=== PATIENT | male | born 1965 | race Caucasian/White ===

== ENCOUNTER 2016-12-17 10:37 | Observation (INO) | payer SELFPAY ==
[2016-12-17] VITALS (7 sets, daily range): BP systolic 135–155; BP diastolic 78–92; PULSE 64–78; RESP 18–20; O2SAT 97–100
[~2016-12-17] VITALS: Ht 172.7 cm; Wt 61.4 kg
[~2016-12-17 10:37] MED LIST: ASPI-956 PO; LIP20 PO; METO25T PO; OMEP20TA86 PO; [UNRECOGNIZED DRUG - OTHER] PO
--- NOTE | 2016-12-17 10:50 | ED.REPORT ---
HPI-Neurologic Deficit Date of Service Dec 17, 2016 ED Provider: Wallace Mcgovern MD The pt is a 51 y/o male with a hx of CA (CABG in 2010) who presents to the ED via EMS complaining of tingling sensation on the left side of his face that gradually came on a few hours ago. He felt normal when he woke up this morning but began noticing left sided facial droop, tingling, and general malaise after a few hours. Associated sx include upper lip numbness and tingling sensation sensation in his left fingers and toes. He denies vision change, change in speech, dysphagia, nausea, vomiting, and headache. The pt also reports sharp pain in his right shoulder blade that lasted 15-20 minutes, onset a few hours ago. He denies shortness of breath, left sided chest pain, and neck pain. His current sx are not the same as the last time he was diagnosed with CA as he is not short of breath today. In the ED, the pt reports feeling better. Nursing Notes Stated Complaint: NUMBNESS Chief Complaint: Neuro Symptoms/ Deficits Nursing Notes Reviewed: Yes Allergies: Uncoded Allergies: EKG ADHESIVES (Adverse Reaction, Intermediate, reddened area, 02/26/12) Scheduled Aspirin (Aspirin) 81 Mg Tablet 81 MG PO DAILY General Time Seen by Provider: 11:03 Chief Complaint Other (tingling sensation in the left sided of the face) Hx Obtained From: Patient Arrived By: Ambulance Sudden in Onset?: Yes Onset Occurred: 1 - 4 hours ago Symptom Duration: Since onset Location: : Back upper Quality: Painful Radiation: : Does not radiate Severity: Current: No pain currently Severity: Maximum: Moderate Recent Healthcare: No recent doctor visit Similar Sx Previous: No Risk Factors NIH Stroke Scale Level of Consciousness: Alert and responsive (0) Ask Month & Age: Both questions right (0) Open/Close Eyes/Hand Shared Services Manager: Performs both tasks (0) Horizontal EO Movements: None (0) Visual Carver: No visual loss (0) Facial Palsy: Normal symmetry (0) Right Arm Motor Drift (10s): No drift 10 sec (0) Left Arm Motor Drift (10s): No drift 10 sec (0) Right Leg Motor Drift (5s): No drift 5 sec (0) Left Leg Motor Drift (5s): No drift 5 sec (0) Limb Ataxia FNF/Heel-Blevins: No ataxia (0) Sensation (Arms/Legs/Face): No sensory loss (0) Language Aphasia: No aphasia, normal (0) Dysarthria: No dysarthria, normal (0) Extinction/Inattention: No exctinct/inattent (0) NIHSS Score: 0 Time NIHSS Performed: 11:05 Date NIHSS Performed: Dec 17, 2016 Past Medical History Past Medical History Notes: Lens 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 Fountain Past Medical History Reports: Coronary artery disease Past Surgical History Right BKA Reports: CABG Smoking History Current Every Day Smoker Ambulatory Status Independent Review of Systems Reports: tingling sensation in the left side of the face, left fingers and toes. Reports: left sided facial droop Constitutional: Reports: Malaise Respiratory: Denies: Shortness of breath Cardiovascular: Denies: Chest pain GI: Denies: Dysphagia, Nausea, Vomiting Musculoskeletal: Reports: Back pain (right shoulder blade), Denies: Neck pain Neurologic: Reports: Numbness (upper lip), Denies: Headache, Slurred speech, Unable to speak, Vision change Complete sys rev & neg: except as marked. Physical Exam Initial Vital Signs Vital Signs (First) Date Time Temp Pulse Resp B/P Pulse Ox O2 Delivery O2 Flow Rate FiO2 12/17/16 10:47 36.1 76 20 155/90 100 Room Air Initial VS: Reviewed Neck: Supple, Non-tender, Full range of motion Abdomen / GI: Soft, Non-tender, No guarding, No rebound, No distention Extremities: Vascular intact, Neuro intact, No swelling, No tenderness Skin: Warm, Dry, No cyanosis Psychiatric: Mood/affect normal, Behavior normal, Normal thought content General/Constitutional: Awake, Alert, No acute distress, Well appearing, Cooperative Head / Eyes: Atraumatic, Normocephalic, PERRL, EOMI Respiratory / Chest: Atraumatic, Breath sounds NL, Breath sounds = bilat, No respiratory distress, No rales, No rhonchi, No wheezing Cardiovascular: Heart rate NL, Regular rhythm, Heart sounds NL, No gallop, No murmurs, No rubs Neurologic: Oriented X3, Speech NL, No motor deficits, No sensory deficits Upper Extremity / MS: Atraumatic, Inspection NL, Full range of motion, No swelling, Non-tender, No erythema, No deformity, Neurologic intact, Vascular intact Lower Extremity / Pelvis / MS: Atraumatic, Full range of motion, No swelling, Non-tender, No deformity, Neurologic intact, Vascular intact Interpretation & Diagnostics Lab Results Interpretation Result Diagram: 12/17/16 1050 12/18/16 0515 Test 12/17/16 10:50 12/17/16 11:45 White Blood Count 9.8th/mm3 (3.8-10.1) Red Blood Count 5.58mil/mm3 (4.40-5.80) Hemoglobin 17.7g/dL (13.8-17.2) Hematocrit 50.9% (41.0-50.0) Mean Corpuscular Volume 91.2fL (81-100) Mean Corpuscular Hemoglobin 31.7pg (27.0-35.0) Mean Corpuscular Hemoglobin Concent 34.8% (32.0-37.0) Red Cell Distribution Width 13.0% (12.3-15.4) Platelet Count 278bil/L (150-400) Neutrophils (%) (Auto) 64.4% (40-74) Lymphocytes (%) (Auto) 24.1% (14-46) Monocytes (%) (Auto) 9.0% (4-12) Eosinophils (%) (Auto) 1.9% (0-5) Basophils (%) (Auto) 0.4% (0-3) Prothrombin Time 10.4sec (8.1-12.5) Prothromb Time International Ratio 0.97ratio D-Dimer < 0.50mg/L FEU (<0.50) Urine Color Yellow (YELLOW) Urine Appearance Clear (CLEAR,HAZY) Urine pH 5.0 (5.0-8.0) Urine Specific [place] 1.005 (1.003-1.035) Urine Protein Negativemg/dL (NEG,TRACE) Urine Glucose (UA) Negativemg/dL (NEGATIVE) Urine Ketones Negativemg/dL (NEGATIVE) Urine Occult Blood Negative (NEGATIVE) Urine Nitrite Negative (NEGATIVE) Urine Bilirubin Negative (NEGATIVE) Urine Urobilinogen Normalmg/dL (NORMAL) Urine Leukocyte Esterase Negative (NEGATIVE) Urine RBC 0-2/hpf (0-2) Urine WBC 0-5/hpf (0-5) Urine Epithelial Cells None/hpf (NONE-MOD) Urine Crystals None seen (NONE SEEN) Urine Bacteria None/hpf (NONE-FEW) Urine Hyaline Casts None/lpf (NONE) Urine Granular Casts None seen (NONE SEEN) Urine Waxy Casts None seen (NONE SEEN) Urine Red Blood Cell Casts None seen (NONE SEEN) Urine White Blood Cell Casts None seen (NONE SEEN) Urine Mucus None seen (None Seen) Urine Trichomonas None seen (NONE SEEN) Urine Yeast None (NONE SEEN) Urinalysis Comment None Urine Culture Reflexed Not indicated X-Ray Chest Interpretation Chest Xray Interpretation: IMPRESSION: No acute pulmonary process. Dictated by: Pia Aguilar M.D. on 12/17/2016 at 12:28 Approved by: Pia Aguilar M.D. on 12/17/2016 at 12:28 View: Portable, 1 view Interpretation / Wet Read by: Interpret - Radiologist CT Head Interpretation IMPRESSION: 1. No acute intracranial process. Dictated by: Pia Aguilar M.D. on 12/17/2016 at 11:27 Approved by: Pia Aguilar M.D. on 12/17/2016 at 11:28 Study: Head CT no contrast Interpretation / Wet Read by: Interpret - Radiologist Re-Eval/Medical Decision Med Decision/Clinical Course 51-year-old male with history of CAD with CABG presenting with a left-sided numbness and tingling that started this morning. He reported left facial droop that resolved. Reported mild left facial numbness as well as left upper extremity and left lower extremity numbness. Symptoms improved by arrival. NIHSS was 0. He reported subjective left-sided numbness but his sensation was symmetrical and intact bilaterally. Workup in ED unremarkable. CT scan was obtained with no acute pathology. He also complained of some left upper back pain for 20 minutes. He reports symptoms similar to his previous heart attack, no associated shortness of breath. No EKG changes. Troponins negative 1. Patient will be admitted for TIA workup. We will also try and EKG and troponins given reported symptoms similar to previous CA. Admitted to Hospital. Full code. Source of Hx: Old records Re-Evaluation/Progress #1: Time of Eval: 00:08 Re-Evaluation/Progress Note: The pt informed the nurse he the tingling sensation in the face and fingers has returned. Re-Evaluation/Progress #2: Time of Eval: 01:07 Re-Evaluation/Progress Note: Rechecked pt. Discussed lab results, imaging results,diagnosis and plan to admit. Pt understands and agrees with the plan for admission. All questions addressed. Consultation : Referral / Consult Name: Niecy Ellington DO Consulted With: Hospitalist Call Returned at: 01:04 Carpet Weaver: Will see patient, Agrees with eval, Agrees with plan, Accepts admit Counseled Regarding: Diagnosis, Lab results, Need for admission Discharge & Departure Impression: Primary Impression: TIA (transient ischemic attack) Transient cerebral ischemia type: unspecified Qualified Code: G45.9 - Transient cerebral ischemic attack, unspecified Additional Impression: Chest pain Disposition: ADMITTED TO HOSPITAL Referrals: NOPCP (PCP) Scribe Attestation Portions of this note were transcribed by Ricardo Esqueda. I,Dr. Mcgovern, personally performed the history,physical exam and medical decision-making;I reviewed and confirmed the accuracy of the information in the transcribed note. Signed by Qasim Macias. 12/16/16 Wallace Mcgovern MD Dec 17, 2016 10:50 Ricardo Esqueda Dec 17, 2016 11:12
[2016-12-17 11:27] LABS: BASOPHILS % (AUTO) 0.4 % (0-3); D-Dimer < 0.50 mg/L FEU (<0.50); EOSINOPHILS % (AUTO) 1.9 % (0-5); INR 0.97 ratio; Mean Corpuscular Hemoglobin 31.7 pg (27.0-35.0); Mean Corpuscular Volume 91.2 fL (81-100); NEUTROPHILS % (AUTO) 64.4 % (40-74); Platelet Count 278 bil/L (150-400)
--- NOTE | 2016-12-17 11:30 | DRSVH ---
PROCEDURE: CT BRAIN WITHOUT CONTRAST ([id number]) INDICATIONS: Left sided weakness TECHNIQUE: Noncontrast 4.5 mm thick angled axial sections acquired from the foramen magnum to the vertex, with c oronal reformats. COMPARISON: [facility] [place] , CT, BRAIN W/O CONTRAST, 09/04/2008, 15:16. FINDINGS: Image quality: Excellent. CSF spaces: Basal cisterns are patent. No extra-axial fluid collections. Ventricles are normal in size and shape. Brain: No midline shift. No intracranial masses or hemorrhage. Degroot-white matter interface is norm al. Skull and face: Calvarium and visualized facial bones are intact, without suspicious lesions. Sinuses: Visualized sinuses and mastoids are clear. IMPRESSION: 1. No acute intracranial process. Dictated by: Pia Aguilar M.D. on 12/17/2016 at 11:27 Approved by: Pia Aguilar M.D. on 12/17/2016 at 11:28
[2016-12-17 11:37] LABS: TROPONIN T 0.01 ug/L (0.0-0.011)
--- NOTE | 2016-12-17 12:30 | DRSVH ---
PROCEDURE: X-RAY CHEST ONE VIEW, PORTABLE ([id number]) INDICATIONS: back pain TECHNIQUE: One view of the chest was acquired. COMPARISON: [facility], , CHEST 1VW (PORTABLE), 09/10/2014, 11:31. FINDINGS: Surgical changes and devices: None. Lungs and pleura: No pleural effusions or pneumothorax. Lungs are clear. Mediastinum: Mediastinal contours appear normal. Heart size is normal. Bones and chest wall: No suspicious bony lesions. Overlying soft tissues appear unremarkable. IMPRESSION: No acute pulmonary process. Dictated by: Pia Aguilar M.D. on 12/17/2016 at 12:28 Approved by: Pia Aguilar M.D. on 12/17/2016 at 12:28
[2016-12-17] MEDS ORDERED: ASPI-973 PO (13:13)
[2016-12-17] MEDS ORDERED: Alum-Mag Hydrox-Simeth 30 mL Suspension PO PRN (13:20)
[2016-12-17] MEDS ORDERED: Ondansetron 2 mg/mL 2 mL Inj IVPUSH PRN (13:20)
[2016-12-17] MEDS ORDERED: Polyethylene Glycol (PEG) 17 Gm Powder PO PRN (13:25)
[2016-12-17 15:04] LABS: APPEARANCE,URINE CLEAR (CLEAR,HAZY); COLOR,URINE YELLOW (YELLOW); OCCULT BLOOD,URINE NEGATIVE (NEGATIVE); UROBILINOGEN,URINE NORMAL (NORMAL)
[2016-12-17] MEDS ORDERED: Labetalol 5 mg/mL 20 mL Inj IVPUSH PRN (15:45)
--- NOTE | 2016-12-17 16:30 | PCM.HPMED ---
Subjective Date of Service Dec 17, 2016 Primary Provider: Admitting Physician: Niecy Ellington DO Primary Care Physician: Jake Attending Physician: Niecy Ellington DO Admit Status: From the Emergency Department, 23-Hour Observation, Admit to [facility], Remote Telemetry Chief Complaint: Numbness and facial droop. . History of Present Illness: Jim Penn is a 51-year-old male with a past medical history significant for coronary artery disease status post CABG 3 vessels, hyperlipidemia, and tobacco use disorder who presented to [facility] emergency Department due to left-sided facial numbness and droop. The patient reports that he woke up this morning and was going about his daily routines when he began to have numbness and tingling in the left side of his face. He then reports that his eyelid felt quite heavy and there was some facial droop which prompted him to come to the emergency department. He has a history of right- sided Benedict's palsy but reports that there was no numbness or tingling associated it. He denies upper or lower extremity focal weakness or trouble with speech. He has never had this before. He reports that by the time he reached the emergency department most of his symptoms had resolved. He had associated numbness and tingling sensation in his left fingers and toes. He denies headache, vision changes, change in speech, dysphagia, sore throat, cough , chest pain, shortness of breath, abdominal pain nausea, vomiting, fever, chills, dysuria, diarrhea or constipation. Of note, he also reported a sharp pain in his left shoulder blade that lasted 15 -20 minutes, onset a few hours ago. He denies shortness of breath, left sided chest pain, and neck pain. His current symptoms are not the same as the last time he was diagnosed with AL as he is not short of breath today. Vital signs in the ER: Temperature 36.1. Pulse 76. Respiratory rate 20. Blood pressure 135/90. Pulse ox 100% on room air. It appears Dr. Henson was contacted by the ED and he recommends a stress test, patient also says he has not followed up with Dr. Henson in 3 yrs. He has stopped his medications that included a statin as he could not afford the meds. No PCP. Quality Tester Dr. Henson. . Review of Systems: A comprehensive review of systems was conducted with the patient and found to be negative except as above in the History of Present Illness. . Allergies Uncoded Allergies: EKG ADHESIVES (Adverse Reaction, Intermediate, reddened area, 02/26/12) Home Medications Aspirin 81 mg daily. . PMH 1. Coronary artery disease status post CABG x 3 vessels. 2. Tobacco use disorder. 3. 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 4. History of right sided Benedict's palsy. 5. Hemochromatosis. 6. Degenerative disc disease. 7. Hyperlipidemia. . Surgical History 1. Right BKA. 2. CABG. 3. Appendectomy. 4. Tonsillectomy. 5. Right hip replacement. . Family History Father who has CAD status post AL at 52 years old. Mother who of Alzheimer 's disease. Two brothers who are healthy. . Social History Hx Alcohol Use: Yes Alcoholic Drinks Per Day: 5-6 beers a week on average, 2-3x/week Hx Substance Use: No Hx Tobacco Use: Yes Smoking Status: Current Every Day Smoker (3-4 cigarettes/day, 2 PPD x 20+ years) Additional Information The patient is . He has a significant other. He has one daughter who is healthy. 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 . Exam Vital Signs Vital Sign - Last Date Time Temp Pulse Resp B/P Pulse Ox O2 Delivery O2 Flow Rate FiO2 12/17/16 13:52 66 12/17/16 13:43 36.7 18 137/86 97 Room Air Exam General: Middle-aged male lying in bed and in no acute distress, well-developed , well-nourished, appropriately interactive HEENT: Normocephalic, atraumatic. External ears without defect. Pupils equal, round, and reactive to light. Anicteric sclerae, moist conjunctivae, and no lid lag. Oropharynx free of erythema and cobble stoning with moist mucosa. Neck: Supple with full range of motion. No jugular venous distension. No bruits. No lymphadenopathy or thyromegaly. Cardiovascular: Regular rate and rhythm without murmurs, rubs, or gallops appreciated Pulmonary: Scattered fine crackles, no wheezes or rhonchi. Normal respiratory effort with no use of accessory muscles. Abdomen: Soft, nontender, nondistended, bowel sounds present. No hepatosplenomegaly or masses appreciated. Extremities: No clubbing, cyanosis, or edema of the left lower extremity. Right lower extremity prosthesis in place. Skin: Normal temperature, turgor, and texture; no rash, ulcers, or subcutaneous nodules appreciated. Neurological: Cranial nerves grossly intact with the exception L facial droop. . Normal muscle strength in mall plant caretaker, L LE. Reflexes (achilles were not done, R Lower leg missing), coordination, and sensory function within normal limits. Neg romberg's, neg alternative hands, negative [id number]. known gait impairment due to R TKA Psychiatric: Normal mood and affect. Alert and oriented to person, place, and time. .Vascular: Palpable pedal pulses in Left foot Lab and Diagnostics Labs Item Value Date Time Prothrombin Time 10.4 sec 12/17/16 1050 Prothromb Time International Ratio 0.97 ratio 12/17/16 1050 D-Dimer < 0.50 mg/L FEU 12/17/16 1050 Item Value Date Time Calcium Level 9.4 mg/dL 12/17/16 1050 Total Bilirubin 0.3 mg/dL 12/17/16 1050 Aspartate Amino Transf (AST/SGOT) 16 U/L 12/17/16 1050 Alanine Aminotransferase (ALT/SGPT) 14 U/L 12/17/16 1050 Alkaline Phosphatase 65 U/L 12/17/16 1050 Troponin T 0.010 ug/L 12/17/16 1050 Pro-B-Type Natriuretic Peptide 104.7 pg/mL 12/17/16 1050 Total Protein 7.8 g/dL 12/17/16 1050 Albumin 4.6 g/dL 12/17/16 1050 Result Diagram: 12/17/16 1050 12/17/16 1050 X-Rays, CTs and MRIs CT BRAIN WITHOUT CONTRAST IMPRESSION: 1. No acute intracranial process. Dictated by: Pia Aguilar M.D. on 12/17/2016 at 11:27 X-RAY CHEST ONE VIEW, PORTABLE IMPRESSION: No acute pulmonary process. Dictated by: Pia Aguilar M.D. on 12/17/2016 at 12:28 Assessment & Plan Jim Penn is a 51-year-old male with a past medical history significant for coronary artery disease status post CABG 3 vessels, hyperlipidemia, and tobacco use disorder who presented to [facility] emergency Department due to left-sided facial numbness and droop. Assessment # Possible TIA, under evaluation. - The patient presented with left-sided facial numbness and droop. - Differential diagnosis includes: TIA versus CVA versus left-sided Benedict's palsy. - Clinical exam showed a left sided droop - Continue aspirin 81 mg daily. - Ordered fasting lipid panel tomorrow morning. - Ordered physical therapy, occupational therapy, and speech therapy. Of note, patient failed nurse swallow screen for left tongue deviation, however, signed waiver for heart healthy diet. - CT brain without contrast did not demonstrate any acute intracranial abnormalities, as above. - Ordered MR Stroke protocol given patient's risk factors - Ordered echocardiogram, pending. - Continue to monitor closely on telemetry. - Allow for permissive hypertension. Ordered PRN Labatolol for SBP > 220 or DBP >110. - Continue neuro checks for the next 24 hours. - Ordered nuclear medicine exercise stress test at direction of patient's engineering recruiter, Dr. Henson, for left-sided shoulder pain that occurred during episode of facial numbness and droop. - NPO after midnight. Chronic problems: Coronary artery disease status post CABG pt currently not on meds except asa - Continue aspirin 81 mg daily. - Restarted the patients atorvastatin 20 mg daily at bedtime as he has not been taking it. - At the request of his engineering recruiter, Dr. Henson, we will perform an exercise stress test tomorrow. --Echocardiogram is ordered --Heparin SQ 5000 U Q8H Tobacco use disorder ongoing - Counseled patient extensively on smoking cessation. - Ordered nicotine patch as needed for nicotine withdrawal. Hemochromatosis ongoing - Hemoglobin 17.7 and hematocrit 50.9. - May want to consider phlebotomy to lower blood counts and prevent hemostasis and coagulopathy. --Possible increased risk of thrombosis. --Hold off on enoxaparin until we get MR Brain result back to avoid hemorrhagic conversion, Heparin SQ was given after MRI was done. Hyperlipidemia ongoing - Continue atorvastatin 20 mg daily. High Risk Meds: IV Morphine PRN antiemetics: Zofran and Maalox. PRN bowel regimen: Senna and MiraLAX. PRN analgesics: Tylenol. Patient is admitted under observation status with expected length of stay less than 2 midnights due to severity of presenting symptoms, risk of adverse event, and complexity of treatment plan. . VTE Prophylaxis: Sub-Q Heparin (Unfractionated) Resuscitation Status: Limited Interventions (DNI) Time spent 45 min Attending Statement Patient is seen with Dr. Marina on 12/17/16, separately examined by me. agree with the above assessment and plan. copies to: Dakota Henson MD, [place] M DO Dec 17, 2016 14:24 Niecy Ellington DO Dec 17, 2016 21:28
[2016-12-17] MEDS: Heparin 5,000 Unit/mL Inj SUBQ SCH (17:29)
--- NOTE | 2016-12-17 18:53 | DRSVH ---
PROCEDURE: MRI STROKE PROTOCOL ([id number]) Pre- and post-contrast brain MRI, non-contrast brain MR angiogram, pre- and postcontrast neck MR almita ogram INDICATIONS: 51 year-old male with history of left-sided facial droop and tingling. TECHNIQUE: Brain: Noncontrast axial T1 spin echo, axial T2 fast spin echo, sagittal and axial FLAIR, coronal T2 fast spin echo, axial gradient echo, axial diffusion and ADC through the brain. After the administr ation of contrast, axial 3D VIBE of the cranial vasculature and brain. Brain MRA: Non-contrast 3-D time of flight MR angiogram, with multiple ciyipmq-pnnwuwvsh-qzzdxwgwli (MIP) reformats performed. Neck MRA: Axial and sagittal TruFISP through the neck. Coronal dynamic MR angiogram during administ ration of contrast in the arterial and venous phases, with 3-dimenstional fxicnpr-ilbuolfxt-imbogdmzt n (MIP) reformats constructed from subtraction images. COMPARISON: [facility], CT, CT BRAIN WO CON, 12/17/2016, 11:26. FINDINGS: Image quality: Excellent. BRAIN: CSF spaces: The ventricles are normal in size. Basal cisterns are patent. No extra-axial fluid say ections. Brain: Diffusion-weighted images demonstrate no acute infarcts. No intracranial hemorrhage, mass, o r mass effect. Degroot-white matter interface is preserved. Brainstem appears normal. Normal intravas cular flow voids are present. No abnormal intracranial enhancement. Skull and face: Calvarial marrow signal is normal. Orbits appear normal. Sinuses: Sinuses and mastoids are clear. BRAIN MR ANGIOGRAM: Anterior circulation: Intracranial internal carotid arteries are patent bilaterally. The flow withi n the paired anterior cerebral arteries is patent bilaterally. The flow within the middle cerebral a rteries is patent bilaterally. The anterior communicating artery is visualized. No high-grade steno ses, occlusions, or aneurysms. Posterior circulation: The visualized portions of the vertebral arteries appear patent and join to f orm a patent basilar artery. The flow within the posterior cerebral arteries is patent bilaterally. No high-grade stenoses, occlusions, or aneurysms. NECK MR ANGIOGRAM: Carotids: Great vessels demonstrate a bovine aortic arch with common origin of the right brachioceph alic and left common carotid arteries as they arise from the aortic arch. The origins of the common carotid arteries appear patent. The calibers and courses of both common carotid arteries are normal. The bifurcation regions appear widely patent. The internal carotid arteries demonstrate normal cou rse and caliber. Posterior circulation: The origins of the vertebral arteries appear patent. More superior portions of both vertebral arteries demonstrate normal course and caliber, and join to form a normal appearing basilar artery. Miscellaneous: Subclavian arteries appear patent. Pre-contrast images through the neck demonstrate multilevel degenerative disc disease within the mid cervical spine with associated spinal canal narro wing at C3-C4, C4-C5, and C5-C6 which are incompletely evaluated. IMPRESSION: BRAIN MRI: 1. No evidence of infarct or other acute intracranial abnormality. BRAIN MR ANGIOGRAM: 1. No high-grade stenosis or occlusion of the central intracranial arteries. NECK MR ANGIOGRAM: 1. High grade stenosis or occlusion of the head and neck arteries. The estimate of stenosis included in the report of the imaging study was calculated using the NASCET method Dictated by: Bert Le M.D. on 12/17/2016 at 18:51 Approved by: Bert Le M.D. on 12/17/2016 at 18:51
[2016-12-18] VITALS (7 sets, daily range): BP systolic 119–157; BP diastolic 69–84; PULSE 56–89; RESP 14–18; O2SAT 95–98
[2016-12-18] MEDS: Heparin 5,000 Unit/mL Inj SUBQ SCH ×3 (00:30→16:30)
[2016-12-18 06:00] LABS: Magnesium 2.1 mg/dL (1.6-2.6)
--- NOTE | 2016-12-18 15:27 | DRSVH ---
[facility] [address] [place] [address] Echocardiogram Report Name: PAIGE BETANCUR JStudy Date: 12/18/2016 Height: 68 in Hospital Exam Location: [facility] Weight: 135 lb Gender: Male BSA: 1.7 m2 : 1965 Age: 51 yrs BP: 133/82 mmHg Reason For Study: TIA Ordering Physician: Performed By: Jah Schroeder Interpretation Summary 1. No evidence of cardio-embolic stroke based upon this imaging study. 2. Normal LV size and function. No focal wall motion abnormalities. 3. Normal biatrial size with intact inter-atrial septum. 4. No evidence of valvular heart diseases. 5. Great vessels are normal size. Procedure: A two-dimensional transthoracic echocardiogram with color flow and Doppler was performed. The study quality was technically good. There is no prior echocardiogram noted for this patient. A saline contrast injection was performed to assess for cardiac shunting. The patient was in normal sinus rhythm during the exam. Left Ventricle: The left ventricle is normal in size. There is normal left ventricular wall thickness. The ejection fraction is estimated to be 50-55%. There are no focal wall motion abnormalities. Right Ventricle: The right ventricle is normal in size and function. Atria: Both atria are normal in size. Injection of contrast documented no interatrial shunt. Mitral Valve: The mitral valve is normal in structure and function. There is trace mitral regurgitation. Aortic Valve: The aortic valve is trileaflet. The aortic valve opens well. There is trace aortic regurgitation. Tricuspid Valve: The tricuspid valve is normal in structure and function. There is trace tricuspid regurgitation. The right ventricular systolic pressure is estimated at 21 mmHg assuming a right atrial pressure of 3 mm Hg. Pulmonic Valve: The pulmonic valve is normal in structure and function. There is trace pulmonic regurgitation. Great Vessels: The aortic root is normal size. The dimensions of the ascending aorta are normal. The pulmonary artery is normal size. The IVC is of normal diameter and collapses greater than 50% with a sniff. This suggests a low right atrial pressure of 3 mm Hg. Pericardium/ Pleura There is no pericardial effusion. There is no pleural effusion. MMode/2D Measurements & Calculations LVIDd: 5.1 cm LA dimension: 3.1 cm LVIDs: 3.6 cm FS: 30.0 % LA A2 area: 17.4 cm EPSS: 0.57 cm LA A4 area: 15.7 cm IVSd: 0.96 cm LA length (vol): 4.9 cm LVPWd: 0.83 cm LA vol: 47.2 ml LA vol index: 27.3 ml/m IVC diam: 1.5 cm RA long axis: 4.2 cm Ao root diam: 3.3 cm RA area: 14.1 cm Aortic Jxn: 2.6 cm RA vol: 40.3 ml asc Aorta Diam: 3.1 cm RA : 23.3 ml/m2 EDV(MOD-sp2): 84.9 ml LV hernández. diameter/BSA (cm/m^2): 3.0 ESV(MOD-sp2): 37.0 ml EF(MOD-sp2): 56.4 % LV sys. diameter/BSA (cm/m^2): 2.1 Doppler Measurements & Calculations Ao V2 max: 106.9 cm/sec MV E max geovani: 55.3 cm/sec Ao max P.6 mmHg MV A max geovani: 63.0 cm/sec Ao mean P.0 mmHg MV E/A: 0.88 TR max geovani: 213.4 cm/sec Med Peak E' Geovani: 5.4 cm/sec TR max P.2 mmHg E/E' med: 10.3 PA V2 max: 71.2 cm/sec Lat Peak E' Geovani: 10.2 cm/sec PA mean P.2 mmHg E/E' lat: 5.4 PA Accel Time: 0.10 sec E/e' average: 7.9 Pulm A Revs Dur: 0.12 sec MV dec time: 0.22 sec Ao V2 mean: 84.8 cm/sec Ao V2 VTI: 23.8 cm PA V2 mean: 51.9 cm/sec PA pr(Accel): 32.4 mmHg Electronically signed by: Dr. Dakota Henson on Reading Physician:12/18/2016 03:26 PM
--- NOTE | 2016-12-18 17:20 | DRSVH ---
PROCEDURE: 1 DAY TREADMILL STRESS TEST Rest and exercise myocardial perfusion SPECT with gated imaging and ejection fraction RADIOPHARMACEUTICAL: 7.4 mCi Tc-99m tetrafosmin IV at rest and 26.7 mCi Tc-99m tetrafosmin IV at peak exercise. Gxt-yue-upthopff was performed. INDICATIONS: 51 year-old male with history of hypertension and coronary artery disease status post CA BG presenting for evaluation of chest pain and TIA. TECHNIQUE: Radiopharmaceutical was injected at peak stress test, and also at rest. SPECT images wer e obtained. SPECT myocardial perfusion images were displayed in short axis, horizontal long axis, an d vertical long axis views. Gated images were reviewed using ArborMet[employer] software. COMPARISON: [facility] [place], [place], MYOCARD PERF SPECT MULT, 02/24/2011, 9:06. CARDIAC STRESS: A standard [place] treadmill exercise tolerance test was performed by the patient under the supervision of an attending staff. The patient exercised for 10 minutes and 36 seconds; functional aerobic impa irment (KARINA) is +30 %. Hemodynamic data: There is normal blood pressure and heart rate response to exercise stress. Patien t achieved 86% of maximum predicted heart rate at peak exercise. Symptoms: Patient denied chest pain during exercise. EKG: No diagnostic EKG changes of ischemia. Rare occasional PVCs noted. FINDINGS: Raw data: There is good myocardial labeling by radiotracer. No significant motion artifacts. Left ventricle function: Gated images demonstrate normal left ventricle wall thickening. There is m ild hypokinesis of the septum which may be related to prior CABG. The left ventricle resting end-hira stolic volume is 90 mL. Left ventricle stress ejection fraction is 61%; normal values are above 45%. Myocardial perfusion: There is normal relative distribution of activity in the left and right ventri cular myocardium. There is a fixed perfusion deficit at the base of the inferior wall suggestive of soft tissue attenuation artifact and less likely a prior infarct. No definite reversible perfusion d efects. IMPRESSION: 1. Probable normal myocardial perfusion images without definite reversible defects to suggest ischem ia. A small reversible perfusion deficit at the base of the inferior wall likely represents soft tis konstantin attenuation artifact and less likely a prior infarct. 2. Normal left ventricular ejection fraction. 3. Mild hypokinesis of the septum may be related to prior CABG. 4. No diagnostic EKG changes of ischemia following exercise stress. PQRS ATTESTATIONS: Measure 322 - Is this imaging test primarily performed on a low-risk surgery patient for preoperative evaluation within 30 days preceding their low-risk non-cardiac surgery? Low-risk surgery is defined as cardiac or myocardial infarction less than 1%, including (but not limited to) endoscopic pr ocedures, superficial procedures, cataract surgery, and excisional breast surgery: Answer: No Measure 323 - Is this imaging test performed primarily for the monitoring of an asymptomatic patient who had percutaneous coronary intervention on the visit date or within 2 years of the visit date? An swer: No Measure 324 - Is this imaging test performed primarily for the initial detection and risk assessment on an asymptomatic, low coronary heart disease patient? Low CHD risk definition = clinicians should consider the maximum number of available patient factors used to estimate risk based on [place] (A TP III criteria), typically age, gender, diabetes, smoking status, and use of blood pressure medicati on, and integrate age appropriate estimates for missing elements, such as LDL or standard blood press ure. Answer: No Dictated by: Bert Le M.D. on 12/18/2016 at 17:12 Approved by: Bert Le M.D. on 12/18/2016 at 17:18
--- NOTE | 2016-12-18 18:04 | PCM.DIMED ---
Discharge Instructions Date of Service Dec 18, 2016 Dates of Hospitalization Dec 17, 2016 at 12:59 Discharge Diagnosis Discharge Diagnosis TIA, Upper back pain, CAD, hyperlipidemia, hemachromatosis Medication Instructions Additional med instructions Please note your statin, lisinopril and metoprolol have been restarted. Daily babu aspirin is recommended Diet Discharge Diet: Heart Healthy Activity Discharge Activity: No restrictions Call your provider Call your provider for: Fever or Chills, Shortness of breath, Bleeding, Chest pain, Vomitting, Excessive diarrhea, Weakness (unilateral), Other Patient Instructions Follow-up plan Please see Dr. Henson in one week Please see [facility] to establish PCP in one week F/U with [facility] for hemachromatosis in 2 weeks Niecy Ellington DO Dec 18, 2016 18:04
[2016-12-18] MEDS ORDERED: METO25TA6 PO (18:06)
[2016-12-18] MEDS ORDERED: LISI-571 PO (18:06)
[2016-12-18] MEDS ORDERED: ATOR10TA66 PO (18:06)
--- NOTE | 2016-12-18 18:09 | PCM.DC.MED ---
Discharge Summary Date of Service Dec 18, 2016 Dates of Hospitalization Date of Hospital Admission Dec 17, 2016 at 12:59 Date of Discharge: Dec 18, 2016 Providers: Admitting Physician: Niecy Guzman DO Primary Care Physician: Jake Attending Physician: Niecy Guzman DO Diagnosis at Time of Discharge Diagnosis at Time of Discharge TIA, Upper back pain, CAD, hyperlipidemia, hemachromatosis Procedures XRay, CTs & MRIs CT BRAIN WITHOUT CONTRAST IMPRESSION: 1. No acute intracranial process. Dictated by: Pia Aguilar M.D. on 12/17/2016 at 11:27 X-RAY CHEST ONE VIEW, PORTABLE IMPRESSION: No acute pulmonary process. Dictated by: Pia Aguilar M.D. on 12/17/2016 at 12:28 --- IMPRESSION: BRAIN MRI: 1. No evidence of infarct or other acute intracranial abnormality. BRAIN MR ANGIOGRAM: 1. No high-grade stenosis or occlusion of the central intracranial arteries. NECK MR ANGIOGRAM: 1. High grade stenosis or occlusion of the head and neck arteries. The estimate of stenosis included in the report of the imaging study was calculated using the NASCET method Dictated by: Bert Le M.D. on 12/17/2016 at 18:51 Approved by: Bert Le M.D. on 12/17/2016 at 18:51 ADDENDUM: Correction of typographic error in the impression of the neck MR angiogram. This should state: No high-grade stenosis or occlusion of the head and neck arteries. Dictated by: Bert Le M.D. on 12/18/2016 at 12:49 Approved by: Bert Le M.D. on 12/18/2016 at 12:50 Report status: Addendum REPORT#: [id number] Cardiac Echo Impression Echocardiogram Report Interpretation Summary 1. No evidence of cardio-embolic stroke based upon this imaging study. 2. Normal LV size and function. No focal wall motion abnormalities. 3. Normal biatrial size with intact inter-atrial septum. 4. No evidence of valvular heart diseases. 5. Great vessels are normal size. \\ Electronically signed by: Dr. Dakota Henson on Reading Physician:12/18/2016 03:26 PM Brief History Jim Penn is a 51-year-old male with a past medical history significant for coronary artery disease status post CABG 3 vessels, hyperlipidemia, and tobacco use disorder who presented to [facility] emergency Department due to left-sided facial numbness and droop. The patient reports that he woke up this morning and was going about his daily routines when he began to have numbness and tingling in the left side of his face. He then reports that his eyelid felt quite heavy and there was some facial droop which prompted him to come to the emergency department. He has a history of right- sided Benedict's palsy but reports that there was no numbness or tingling associated it. He denies upper or lower extremity focal weakness or trouble with speech. He has never had this before. He reports that by the time he reached the emergency department most of his symptoms had resolved. He had associated numbness and tingling sensation in his left fingers and toes. He denies headache, vision changes, change in speech, dysphagia, sore throat, cough , chest pain, shortness of breath, abdominal pain nausea, vomiting, fever, chills, dysuria, diarrhea or constipation. Of note, he also reported a sharp pain in his left shoulder blade that lasted 15 -20 minutes, onset a few hours ago. He denies shortness of breath, left sided chest pain, and neck pain. His current symptoms are not the same as the last time he was diagnosed with CT as he is not short of breath today. Vital signs in the ER: Temperature 36.1. Pulse 76. Respiratory rate 20. Blood pressure 135/90. Pulse ox 100% on room air. It appears Dr. Henson was contacted by the ED and he recommends a stress test, patient also says he has not followed up with Dr. Henson in 3 yrs. He has stopped his medications that included a statin as he could not afford the meds. No PCP. Cio Dr. Henson. . Hospital Course Jim Penn is a 51-year-old male with a past medical history significant for coronary artery disease status post CABG 3 vessels, hyperlipidemia, and tobacco use disorder who presented to [facility] emergency Department due to left-sided facial numbness and droop. Assessment # Possible TIA, under evaluation. - The patient presented with left-sided facial numbness and droop. - Differential diagnosis includes: TIA versus CVA versus left-sided Benedict's palsy. - Clinical exam showed a left sided droop - Continue aspirin 81 mg daily. - Ordered physical therapy, occupational therapy, and speech therapy. Of note, patient failed nurse swallow screen for left tongue deviation, however, signed waiver for heart healthy diet. - CT brain without contrast did not demonstrate any acute intracranial abnormalities, as above. - Ordered MR Stroke protocol given patient's risk factors - Continue to monitor closely on telemetry. - Allow for permissive hypertension. Ordered PRN Labatolol for SBP > 220 or DBP >110. - Continue neuro checks for the next 24 hours. - Ordered nuclear medicine exercise stress test at direction of patient's dressmaker helper, Dr. Henson, for left-sided shoulder pain that occurred during episode of facial numbness and droop. Neg for new findings according to rad report -- Continue baby aspirin -- Pt declined swallow study, we recommend outpt Swallow study via PCP if patient wants to do it. Low risk for aspiration as he did fine on heart healthy diet here. Tongue deviation thought to be due to bells palsy that is remote. -- A!C is ordered and pending result at the time of d/c. Patient would like to be discharged home. -- Echo: "No evidence of cardio-embolic stroke based upon this imaging study." Chronic problems: Coronary artery disease status post CABG pt currently not on meds except asa - Continue aspirin 81 mg daily. - Restarted the patients atorvastatin 20 mg daily at bedtime as he has not been taking it. - At the request of his dressmaker helper, Dr. Henson, we will perform an exercise stress test tomorrow. --Echocardiogram is ordered, no abnormal findings --Heparin SQ 5000 U Q8H --Patients home meds were restarted: atorvastatin, lisinopril, metoprolol Tobacco use disorder ongoing - Counseled patient extensively on smoking cessation. - Ordered nicotine patch as needed for nicotine withdrawal. Hemochromatosis ongoing - Hemoglobin 17.7 and hematocrit 50.9. - May want to consider phlebotomy to lower blood counts and prevent hemostasis and coagulopathy. --Possible increased risk of thrombosis. --Heparin SQ was given after MRI was done. -- ASA 81 mg for d/c -- F/U with hematology in 2 weeks Hyperlipidemia ongoing - atorvastatin 20 mg daily. High Risk Meds: IV Morphine PRN antiemetics: Zofran and Maalox. PRN bowel regimen: Senna and MiraLAX. PRN analgesics: Tylenol. Patient is admitted under observation status with expected length of stay less than 2 midnights due to severity of presenting symptoms, risk of adverse event, and complexity of treatment plan. . Exam Vital Signs (Last) Date Time Temp Pulse Resp B/P Pulse Ox O2 Delivery O2 Flow Rate FiO2 12/18/16 16:45 36.9 75 18 119/84 95 Room Air Exam General NAD HEENT: Mild improvement in facial droop that is mild to begin with Heart: RRR, no s3/s4 Lungs: CTA, no crackles or wheezes Abd: Soft, NT/ND Ext: No edema Neuro: No change since yesterday, no focal deficits Psych: No anxiety Test 12/17/16 10:50 12/17/16 11:45 12/17/16 14:10 12/17/16 22:42 White Blood Count 9.8th/mm3 (3.8-10.1) Red Blood Count 5.58mil/mm3 (4.40-5.80) Hemoglobin 17.7g/dL (13.8-17.2) Hematocrit 50.9% (41.0-50.0) Mean Corpuscular Volume 91.2fL (81-100) Mean Corpuscular Hemoglobin 31.7pg (27.0-35.0) Mean Corpuscular Hemoglobin Concent 34.8% (32.0-37.0) Red Cell Distribution Width 13.0% (12.3-15.4) Platelet Count 278bil/L (150-400) Neutrophils (%) (Auto) 64.4% (40-74) Lymphocytes (%) (Auto) 24.1% (14-46) Monocytes (%) (Auto) 9.0% (4-12) Eosinophils (%) (Auto) 1.9% (0-5) Basophils (%) (Auto) 0.4% (0-3) Prothrombin Time 10.4sec (8.1-12.5) Prothromb Time International Ratio 0.97ratio D-Dimer < 0.50mg/L FEU (<0.50) Urine Color Yellow (YELLOW) Urine Appearance Clear (CLEAR,HAZY) Urine pH 5.0 (5.0-8.0) Urine Specific [place] 1.005 (1.003-1.035) Urine Protein Negativemg/dL (NEG,TRACE) Urine Glucose (UA) Negativemg/dL (NEGATIVE) Urine Ketones Negativemg/dL (NEGATIVE) Urine Occult Blood Negative (NEGATIVE) Urine Nitrite Negative (NEGATIVE) Urine Bilirubin Negative (NEGATIVE) Urine Urobilinogen Normalmg/dL (NORMAL) Urine Leukocyte Esterase Negative (NEGATIVE) Urine RBC 0-2/hpf (0-2) Urine WBC 0-5/hpf (0-5) Urine Epithelial Cells None/hpf (NONE-MOD) Urine Crystals None seen (NONE SEEN) Urine Bacteria None/hpf (NONE-FEW) Urine Hyaline Casts None/lpf (NONE) Urine Granular Casts None seen (NONE SEEN) Urine Waxy Casts None seen (NONE SEEN) Urine Red Blood Cell Casts None seen (NONE SEEN) Urine White Blood Cell Casts None seen (NONE SEEN) Urine Mucus None seen (None Seen) Urine Trichomonas None seen (NONE SEEN) Urine Yeast None (NONE SEEN) Urinalysis Comment None Urine Culture Reflexed Not indicated Pro-B-Type Natriuretic Peptide 117.5pg/mL (0-121) Triglycerides Level 137mg/dL (0-149) Cholesterol Level 172mg/dL (100-199) LDL Cholesterol, Calculated 109.600mg/dL (0-99) VLDL Cholesterol 27.400mg/dL HDL Cholesterol 35mg/dL (>39) Cholesterol/HDL Ratio 4.91 (0.0-4.4) Troponin T 0.010ug/L (0.0-0.011) Test 12/18/16 05:15 Sodium Level 142mEq/L (134-144) Potassium Level 4.2mEq/L (3.5-5.2) Chloride Level 107mEq/L (97-108) Carbon Dioxide Level 25mmol/L (18-29) Blood Urea Nitrogen 17mg/dL (6-24) Creatinine 0.76mg/dL (0.76-1.27) Estimat Glomerular Filtration Rate 115mL/min (>59) Glucose Level 116mg/dL (60-99) Calcium Level 8.9mg/dL (8.5-10.1) Magnesium Level 2.1mg/dL (1.6-2.6) Total Bilirubin 0.2mg/dL (0.0-1.2) Aspartate Amino Transf (AST/SGOT) 15U/L (0-50) Alanine Aminotransferase (ALT/SGPT) 13U/L (0-44) Alkaline Phosphatase 59U/L (25-150) Total Protein 6.4g/dL (6.4-8.4) Albumin 4.0g/dL (3.4-5.0) Discharge Medications Discharge Medications Aspirin (Aspirin) 81 Mg Tablet 81 MG PO DAILY (Reported) Atorvastatin Calcium (Atorvastatin Calcium) 10 Mg Tablet 20 MG PO HS Prescribed by: NIECY GUZMAN DO Lisinopril (Lisinopril) 5 Mg Tablet 2.5 MG PO DAILY Prescribed by: NIECY GUZMAN DO Metoprolol Tartrate (Metoprolol Tartrate) 25 Mg Tablet 12.5 MG PO BID Prescribed by: NIECY GUZMAN DO Additional med instructions Please note your statin, lisinopril and metoprolol have been restarted. Daily babu aspirin is recommended Followup Plan Follow-up plan Please see Dr. Henson in one week Please see [facility] clinic to establish PCP in one week F/U with [facility] for hemachromatosis in 2 weeks Discharge Diet: Heart Healthy Discharge Activity: No restrictions Time spent Greater than 30 minutes was spent in preparation of discharge with greater than 50% of that time dedicated to patient counseling and coordination of care. Niecy Guzman DO Dec 18, 2016 18:09
== END 2016-12-18 18:45 | disposition home or self-care (01) ==
LOC: EDBD 10:37 → SED 10:37 → MPC 12:59
PROVIDERS: ADMIT Family Medicine; ATTEND Family Medicine
DX: G45.9 Transient cerebral ischemic attack, unspecified (principal); R29.810 Facial weakness; I25.10 Atherosclerotic heart disease of native coronary artery without angina pectoris; E78.5 Hyperlipidemia, unspecified; M54.6 Pain in thoracic spine; F17.210 Nicotine dependence, cigarettes, uncomplicated; E83.119 Hemochromatosis, unspecified; Z95.1 Presence of aortocoronary bypass graft; Z89.511 Acquired absence of right leg below knee
CPT/HCPCS: 36415; 70450; 70549; 70553; 71010; 78452; 80053; 80061; 81000; 82948; 83036; 83735; 83880; 84484; 85025; 85378; 85610; 93005; 93017; 97165; 99285; A9502; A9585; C8929; G0378; J1644